=== PATIENT | male | born 1985 | race American Indian/Alaskan Native ===

== ENCOUNTER 2021-09-11 09:12 | Emergency (ER) | payer SELFPAY ==
[2021-09-11 09:17] VITALS: BP 139/82
--- NOTE | 2021-09-11 11:15 | Emergency Department Report ---
ED ENT HPI - General Chief complaint: Dental/Oral Stated complaint: TOOTHACHE Source: patient Mode of arrival: Ambulatory Limitations: No Limitations - History of Present Illness Initial comments: 36-year-old male presents the ED complaining of toothache x 3 days. Patient states that he went to the dentist yesterday and was told that he needs some antibiotic. He states that he has an appointment today at 1130 with a dentist. Patient states that he came to the ED to get a prescription for some antibiotic. He states that pain is a 8 out of 10. Patient has no obvious swelling noted tooth area. Patient is alert and oriented x3. No acute distress noted no ill appearance noted. MD complaint: tooth pain Onset/Timin -: days(s) Severity: moderate Severity scale (0 -10): 8 Quality: aching Consistency: intermittent Improves with: none Worsens with: none Context- Dental: history of dental caries - Related Data Previous Rx's Medication Instructions Recorded Last Taken Type Clindamycin [Clindamycin CAP] 600 mg PO BID 10 Days #20 capsule 09/11/21 Unknown Rx Ibuprofen [Motrin] 800 mg PO Q8HR PRN 15 Days #30 09/11/21 Unknown Rx tablet Allergies Allergy/AdvReac Type Severity Reaction Status Date / Time No Known Allergies Allergy Verified 09/11/21 09:15 ED Dental HPI - General Chief complaint: Dental/Oral Stated complaint: TOOTHACHE Source: patient Mode of arrival: Ambulatory Limitations: No Limitations - Related Data Previous Rx's Medication Instructions Recorded Last Taken Type Clindamycin [Clindamycin CAP] 600 mg PO BID 10 Days #20 capsule 09/11/21 Unknown Rx Ibuprofen [Motrin] 800 mg PO Q8HR PRN 15 Days #30 09/11/21 Unknown Rx tablet Allergies Allergy/AdvReac Type Severity Reaction Status Date / Time No Known Allergies Allergy Verified 09/11/21 09:15 ED Review of Systems ROS: Stated complaint: TOOTHACHE Other details as noted in HPI Constitutional: denies: chills, fever Eyes: denies: eye pain, eye discharge, vision change ENT: dental pain. denies: ear pain, throat pain Respiratory: denies: cough, shortness of breath, wheezing Cardiovascular: denies: chest pain, palpitations Endocrine: no symptoms reported Gastrointestinal: denies: abdominal pain, nausea, diarrhea Genitourinary: denies: urgency, dysuria Musculoskeletal: denies: back pain, joint swelling, arthralgia Skin: denies: rash, lesions Neurological: denies: headache, weakness, paresthesias Psychiatric: denies: anxiety, depression Hematological/Lymphatic: denies: easy bleeding, easy bruising ED Past Medical Hx - Medications Home Medications: Home Medications Medication Instructions Recorded Confirmed Last Taken Type Clindamycin [Clindamycin CAP] 600 mg PO BID 10 Days #20 capsule 09/11/21 Unknown Rx Ibuprofen [Motrin] 800 mg PO Q8HR PRN 15 Days #30 09/11/21 Unknown Rx tablet ED Physical Exam - General Limitations: No Limitations General appearance: alert, in no apparent distress - Head Head exam: Present: atraumatic, normocephalic - Eye Eye exam: Present: normal appearance - ENT ENT exam: Present: mucous membranes moist - Expanded ENT Exam Expanded Teeth exam: Present: dental caries, dental tenderness # - Neck Neck exam: Present: normal inspection - Respiratory Respiratory exam: Present: normal lung sounds bilaterally. Absent: respiratory distress - Cardiovascular Cardiovascular Exam: Present: regular rate, normal rhythm. Absent: systolic murmur, diastolic murmur, rubs, gallop - GI/Abdominal GI/Abdominal exam: Present: soft, normal bowel sounds - Rectal Rectal exam: Present: deferred - Extremities Exam Extremities exam: Present: normal inspection - Back Exam Back exam: Present: normal inspection - Neurological Exam Neurological exam: Present: alert, oriented X3 - Psychiatric Psychiatric exam: Present: normal affect, normal mood - Skin Skin exam: Present: warm, dry, intact, normal color. Absent: rash ED Course Vital Signs 09/11/21 09:15 Temperature 98.2 F Pulse Rate 69 Respiratory 18 Rate Blood Pressure 139/82 O2 Sat by Pulse 100 Oximetry ED Medical Decision Making - Medical Decision Making 36-year-old male presents the ED complaining of toothache x 3 days. Patient states that he went to the dentist yesterday and was told that he needs some antibiotic. He states that he has an appointment today at 11:30 with a dentist. Patient states that he came to the ED to get a prescription for some antibiotic. He states that pain is a 8 out of 10. Patient has no obvious swelling noted tooth area. Patient is alert and oriented x3. No acute distress noted no ill appearance noted. Physical examination patient has multiple dental cavities noted. Patient is complaining of tooth number 32 which has a large cavity noted. Advised patient to keep appointment with dentist today at 11:30. Rechecked the patient is resting quietly quietly and comfortable and feeling better. I discussed the results of diagnostic study, my clinical impression and the plan for further treatment with the patient. Patient agrees with plan and discharge at this present time. All question addressed. I have given the patient instruction regarding a diagnosis ,expectation ,follow- up and return precaution. I explained to the patient that emergent condition may arise and to return to the ED for new worsen and any new persisting condition. I have explained the importance of following up with the primary care physician or referral physician listed below has instructed. The patient verbalized understanding of discharge instruction. Critical care attestation.: If time is entered above; I have spent that time in minutes in the direct care of this critically ill patient, excluding procedure time. ED Disposition Clinical Impression: Dental cavity Disposition: 01 HOME / SELF CARE / HOMELESS Is pt being admited?: No Does the pt Need Aspirin: No Condition: Stable Instructions: Preventive Dental Care, Adult Additional Instructions: Take medication as prescribed keep Appointment with dentist Prescriptions: Clindamycin [Clindamycin CAP] 600 mg PO BID 10 Days #20 capsule Ibuprofen [Motrin] 800 mg PO Q8HR PRN 15 Days #30 tablet PRN Reason: Pain, Moderate (4-6) Referrals: [facility] [Outside] - 3-5 Days Forms: Work/School Release Form(ED) Time of Disposition: 11:15
== END 2021-09-11 12:01 | disposition home or self-care (01) ==
LOC: ED 09:12
DX: K02.9 Dental caries, unspecified (principal)
CPT/HCPCS: 99282